=== PATIENT | male | born 1935 | race Caucasian/White ===

== ENCOUNTER 2019-06-22 15:58 | Emergency (ER) | payer MEDICARE ==
[2019-06-22 16:44] LABS: ABSOLUTE NEUTROPHIL COUNT 25.42; HEMATOCRIT 38.4 % (42.0-52.0); HEMOGLOBIN 12.3 gm/dl (14.0-18.0); MEAN CELL VOLUME 74.4 fl (81-97); MEAN CORPUSCULAR HEMOGLOBIN 23.8 pg (27-33); MEAN PLATELET VOLUME 9.9 fl (7.4-10.4); PLATELET COUNT 252 K/uL (130-400); RED BLOOD COUNT 5.16 M/uL (4.40-5.70); URINE APPEARANCE CLEAR; URINE BILIRUBIN NEGATIVE (NEGATIVE); URINE BLOOD NEGATIVE (NEGATIVE); URINE COLOR YELLOW; URINE GLUCOSE (UA) NEGATIVE (NEGATIVE); URINE KETONE NEGATIVE (NEGATIVE); URINE LEUKOCYTE ESTERASE NEGATIVE (NEGATIVE); URINE NITRITE NEGATIVE (NEGATIVE); URINE PROTEIN NEGATIVE (NEGATIVE); URINE UROBILINOGEN 0.2 E.U./dL (0.20 - 1.00)
[2019-06-22 16:53] LABS: WHITE BLOOD COUNT W/O DIFF 27.2 K/uL (4.2-12.2)
[2019-06-22 16:57] LABS: CREATININE 1.4 mg/dL (0.7-1.2)
--- NOTE | 2019-06-22 16:57 | Emergency Department Record ---
History of Present Illness - General Chief Complaint: Fever Stated Complaint: WEAKNESS,FEVER Time Seen by Provider: 06/22/19 16:08 Source: Patient, RN notes reviewed Mode of Arrival: Ambulatory - History of Present Illness Initial Comments: patient here because of weakness and fever and he had a bronchoscope done yesterday by Dr. Goncalves at [facility]. patient denies sore throat , no vomiting or diarrhea and no dysuria. Patient had a microbacterium type infection and reason for bronchoscopy, He also has a chronic cough. PMH pacemaker and atrial fib and history of PE and on guicho HORAN Complaint: Fever, Weakness Onset/Timin -: Days(s) Maximum Temperature: 101.7 F Temperature Source: Oral Context: Other Treatments Prior to Arrival: None - Related Data Home Medications Medication Instructions Recorded Confirmed Last Taken Albuterol Sulfate [Proair Hfa] 1 - 2 puff IH .EVERY 4-6 HOURS PRN 06/22/19 06/22/19 Unknown Apixaban [Eliquis] 5 mg PO BID 06/22/19 06/22/19 Unknown Carvedilol [Coreg] 3.125 mg PO BID 06/22/19 06/22/19 Unknown Dorzolamide HCl/Timolol Maleat 10 ml OP BID 06/22/19 06/22/19 Unknown [Cosopt Eye Drops] Furosemide 40 mg PO DAILY 06/22/19 06/22/19 Unknown Hydrocodone/Acetaminophen 1 tab PO Q6H PRN 06/22/19 06/22/19 Unknown [Hydrocodone/Acetaminophen 7.5mg/325mg] Hypochlorous Acid/Sodium Chlor 40 mg IH DAILY 06/22/19 06/22/19 Unknown [Avenova Lid-Lash Ramona] Pantoprazole Sodium 40 mg PO BID 06/22/19 06/22/19 Unknown Tafluprost/Pf [Zioptan 0.0015% Eye 1 each OP QHS 06/22/19 06/22/19 Unknown Drops] Valsartan 80 mg PO DAILY 06/22/19 06/22/19 Unknown Allergies Allergy/AdvReac Type Severity Reaction Status Date / Time cephalexin monohydrate AdvReac Mild sensitive Verified 01/26/16 15:05 [From [employer]] as a child latex AdvReac Mild RASH Verified 01/26/16 15:05 Travel Screening - Travel/Exposure Within Last 30 Days Have you traveled within the last 30 days?: No Review of Systems Reviewed: No additional complaints except as noted below Constitutional: Reports: As per HPI. Denies: Chills, Fever, Malaise, Night sweats, Weakness, Weight change Eyes: Reports: As per HPI. Denies: Eye discharge, Eye pain, Photophobia, Vision change ENT: Reports: As per HPI. Denies: Congestion, Dental pain, Ear pain, Epistaxis, Hearing loss, Throat pain Respiratory: Reports: As per HPI, Cough. Denies: Dyspnea, Hemoptysis, Stridor, Wheezes Cardiovascular: Reports: As per HPI. Denies: Arrhythmia, Chest pain, Dyspnea on exertion, Edema, Murmurs, Orthopnea, Palpitations, Paroxysmal nocturnal dyspnea, Rheumatic Fever, Syncope Endocrine: Reports: As per HPI. Denies: Fatigue, Heat or cold intolerance, Polydipsia, Polyuria Gastrointestinal: Reports: As per HPI. Denies: Abdominal pain, Constipation, Diarrhea, Hematemesis, Hematochezia, Melena, Nausea, Vomiting Genitourinary: Reports: As per HPI. Denies: Dysuria, Frequency, Hematuria, Inco ntinence, Retention, Testicular pain, Testicular mass, Urgency Musculoskeletal: Reports: As per HPI. Denies: Arthralgia, Back pain, Gout, Joint swelling, Myalgia, Neck pain Skin: Reports: As per HPI. Denies: Bruising, Change in color, Change in martine r/nails, Lesions, Pruritus, Rash Neurological: Reports: As per HPI. Denies: Abnormal gait, Confusion, Headache, Numbness, Paresthesias, Seizure, Tingling, Tremors, Vertigo, Weakness Psychiatric: Reports: As per HPI. Denies: Anxiety, Auditory hallucinations, Depression, Homicidal thoughts, Suicidal thoughts, Visual hallucinations Hematological/Lymphatic: Reports: As per HPI. Denies: Anemia, Blood Clots, Easy bleeding, Easy bruising, Swollen glands Past Medical History - SOCIAL HISTORY Smoking Status: Former smoker - RESPIRATORY Hx Respiratory Disorders: Yes Hx Sleep Apnea: Yes - CARDIOVASCULAR Hx Cardio Disorders: Yes Hx Abnormal EKG: Yes (PVC's) Hx Cardiac Cath: Yes (neg) Hx Edema: Yes (left) Hx Hypertension: Yes Comment:: AAA, high cholesterol - NEURO Hx Neuro Disorders: Yes Hx of Migraines: Yes (hx) Hx Neuropathy: Yes (LLE r/t laminectomy) Hx Weakness: Yes (LLE r/t laminectomy) - GI Hx GI Disorders: Yes Hx Reflux: Yes Hx Irritable Bowel: Yes (hx) Hx Rectal Bleeding: Yes Hx of Polyps: Yes Comment:: internal hemorrhoids per Dr. Oliver 10/2015 - Hx Genitourinary Disorders: No Hx Bladder Problem: (more frequency) - ENDOCRINE Hx Endocrine Disorders: No - MUSCULOSKELETAL Hx Musculoskeletal Disorders: Yes Hx Arthritis: Yes Comment:: PMR- hips and shoulders - PSYCH Hx Psych Problems: No - HEMATOLOGY/ONCOLOGY Hx Hematology/Oncology Disorders: No Family Medical History Any Significant Family History?: Yes Family Hx Comment (NOT TO BE USED IN PLACE OF ITEMS BELOW): manternal uncle- >colon cancer Hx Diabetes: Father, Children Hx Heart Disease: Father *Heart Comment: [place] Hx Liver Disease: Mother *Liver Comment: autoimmune disorder Hx Resp Disorders: Children *Resp Comment: CF (son at age 2) Physical Exam - General General Appearance: Alert, Oriented x3, Cooperative, No acute distress - Head Head exam: Normal inspection - Eye Eye exam: Normal appearance, PERRL Pupils: Normal accommodation - ENT ENT exam: Normal exam, Mucous membranes moist, Normal external ear exam, Normal orophraynx, TM's normal bilaterally Ear exam: Normal external inspection. negative: External canal tenderness Nasal Exam: Normal inspection. negative: Discharge, Sinus tenderness Mouth exam: Normal external inspection, Tongue normal Teeth exam: Normal inspection. negative: Dental caries Throat exam: Normal inspection. negative: Tonsillar erythema, Tonsillar exudate - Neck Neck exam: Normal inspection, Full ROM. negative: Tenderness - Respiratory Respiratory exam: Normal lung sounds bilaterally. negative: Respiratory distress - Cardiovascular Cardiovascular Exam: Regular rate, Normal rhythm, Normal heart sounds - GI/Abdominal GI/Abdominal exam: Soft, Normal bowel sounds. negative: Tenderness - Rectal Rectal exam: Deferred - exam: Deferred - Extremities Extremities exam: Normal inspection, Full ROM, Normal capillary refill. negative: Tenderness - Back Back exam: Reports: Normal inspection, Full ROM. Denies: Muscle spasm, Rash noted, Tenderness - Neurological Neurological exam: Alert, Normal gait, Oriented X3, Reflexes normal - Psychiatric Psychiatric exam: Normal affect, Normal mood - Skin Skin exam: Dry, Intact, Normal color, Warm Course Vital Signs 06/22/19 16:06 Temperature 99.0 F Pulse Rate 55 L Respiratory 16 Rate Blood Pressure 123/63 Pulse Ox 93 L - Reevaluation(s) Reevaluation #1: discussed case Dr Mcguire insurance risk analyst covering for DR Goncalves and he recommended levaquin. 06/22/19 17:44 Reevaluation #2: discussed case with patient and and they would like to try outpatient treatment and they will talk to Dr Goncalves next week. 06/22/19 19:17 Reevaluation #3: Dr Goncalves called in levaquin 500 mg for 10 days this am and he took the first pill today 06/22/19 19:24 Medical Decision Making - Data Complexity MDM Data: Labs Ordered and/or Reviewed (wbc 27,000), X-Ray Ordered and/or Reviewed (infiltrate right lower lobe and left lower lobe reticular and difficult to exclude and infiltrate) - Lab Data Result diagrams: 06/22/19 16:17 06/22/19 16:17 Lab Results 06/22/19 Range/Units 16:17 Urine Color Yellow Urine Appearance Clear Urine pH 6.0 (5.0-8.0) Ur Specific Anthony 1.010 (1.002-1.030) Urine Protein Negative (NEGATIVE) Urine Glucose (UA) Negative (NEGATIVE) Urine Ketones Negative (NEGATIVE) Urine Blood Negative (NEGATIVE) Urine Nitrite Negative (NEGATIVE) Urine Bilirubin Negative (NEGATIVE) Urine Urobilinogen 0.2 (0.20 - 1.00) E.U./dL Ur Leukocyte Esterase Negative (NEGATIVE) Disposition Clinical Impression: Leukocytosis Qualifiers: Leukocytosis type: unspecified Qualified Code(s): D72.829 - Elevated white blood cell count, unspecified Pneumonia Qualifiers: Pneumonia type: due to unspecified organism Laterality: bilateral Lung location: lower lobe of lung Qualified Code(s): J18.1 - Lobar pneumonia, unspec ified organism Disposition: Home, Self-Care Condition: (1) Good Instructions: Bacterial Pneumonia (ED) Additional Instructions: follow up with Dr Goncalves next week or Dr Drew next week continue the levaquin 500 mg daily for the 10 day course return if worse Forms: Patient Portal Access Quality - Quality Measures Quality Measures: N/A - Blood Pressure Screening Does Patient Have Any of the Following: No, Active Dx of HTN Blood Pressure Classification: Pre-Hypertensive BP Reading Systolic Measurement: 123 Diastolic Measurement: 63 Screening for High Blood Pressure: Patient Exclusion, Hx of HTN [G9014]
[2019-06-22] MEDS ORDERED: 0.9 % SODIUM CHLORIDE 500ML 500 ML IV SCH (18:00)
--- NOTE | 2019-06-23 13:30 | RADIOLOGY REPORT ---
EXAM: CHEST 2 VIEWS HISTORY: STATUS POST BRONCHOSCOPY YESTERDAY. FEVER AND PRODUCTIVE COUGH TODAY. HISTORY OF MICROBACTERIUM INFECTION. TECHNIQUE: Upright PA and lateral views of the chest. COMPARISON: None. FINDINGS: A dual-lead transvenous cardiac stimulator is in place via the left subclavian approach with lead tips in the right atrium and right ventricle, respectively. The heart is nonenlarged and the pulmonary vasculature is nondilated. The thoracic aorta is mildly tortuous and atherosclerotic. The lungs appear mildly hyperinflated. Mixed, primarily reticular opacities are noted within the lower lungs. The posterior costophrenic angles are somewhat ill-defined with scarring or tiny effusions possible. No acute osseous abnormality. IMPRESSION: 1. DUAL-LEAD TRANSVENOUS CARDIAC STIMULATOR IN PLACE VIA THE LEFT SUBCLAVIAN APPROACH. 2. HYPERINFLATION OF THE LUNGS CONSISTENT WITH COPD. 3. MIXED, PRIMARILY RETICULAR OPACITIES WITHIN THE LOWER LUNGS. WHILE THIS MAY ALL RELATE TO CHRONIC INTERSTITIAL CHANGE/FIBROSIS, INFILTRATE OR EDEMA SUPERIMPOSED ON CHRONIC INTERSTITIAL DISEASE WOULD BE DIFFICULT TO EXCLUDE. 4. ILL-DEFINED COSTOPHRENIC ANGLES. THIS MAY RELATE TO HYPERINFLATION, SCARRING, OR TINY EFFUSIONS. JOB NUMBER: [id number] [facility]
== END 2019-06-22 19:38 | disposition home or self-care (01) ==
LOC: ER 15:58
DX: J18.1 Lobar pneumonia, unspecified organism (principal); D72.829 Elevated white blood cell count, unspecified; Z87.891 Personal history of nicotine dependence; I48.91 Unspecified atrial fibrillation; R53.1 Weakness; Z95.0 Presence of cardiac pacemaker; E78.00 Pure hypercholesterolemia, unspecified
CPT/HCPCS: 71046; 80048; 81003; 85027; 99284; 99285; J7040

== ENCOUNTER 2019-06-23 15:50 | Observation (INO) | payer MEDICARE ==
[2019-06-23 16:41] LABS: ABSOLUTE NEUTROPHIL COUNT 13.49; HEMATOCRIT 35.6 % (42.0-52.0); HEMOGLOBIN 11.3 gm/dl (14.0-18.0); MEAN CELL VOLUME 74.3 fl (81-97); MEAN CORPUSCULAR HGB CONC 31.7 g/dl (32-36); MEAN PLATELET VOLUME 10.5 fl (7.4-10.4); PLATELET COUNT 227 K/uL (130-400); RED BLOOD COUNT 4.79 M/uL (4.40-5.70); RED CELL DISTRIBUTION WIDTH 17.9 % (11.5-14.5)
[2019-06-23 16:45] LABS: MEAN CORPUSCULAR HEMOGLOBIN 23.5 pg (27-33)
[2019-06-23 16:51] LABS: CREATININE 1.3 mg/dL (0.7-1.2)
--- NOTE | 2019-06-23 18:03 | Emergency Department Record ---
History of Present Illness - General Chief Complaint: Difficulty Breathing Stated Complaint: PNEUMONIA Time Seen by Provider: 06/23/19 16:04 Source: Patient, RN notes reviewed Mode of Arrival: Ambulatory - History of Present Illness Initial Comments: patient returns and short of breath and cough and he feels weak and slightly confused per . Currently he is alert and oriented times three and not confused. chest xray slightly worse WBC better 15,000 Onset/Timin -: Days(s) Severity: Moderate Severity scale (1-10): 7 Quality: Aching Consistency: Constant Improves With: Nothing Worsens With: Nothing - Related Data Allergies Allergy/AdvReac Type Severity Reaction Status Date / Time cephalexin monohydrate AdvReac Mild sensitive Verified 06/23/19 15:54 [From [employer]] as a child latex AdvReac Mild RASH Verified 06/23/19 15:54 Travel Screening - Travel/Exposure Within Last 30 Days Have you traveled within the last 30 days?: No - Travel/Exposure Within Last Year Have you traveled outside the [place] in the last year?: No - Additonal Travel Details Have you been exposed to anyone with a communicable illness?: No - Travel Symptoms Symptom Screening: None Review of Systems Reviewed: No additional complaints except as noted below Constitutional: Reports: As per HPI. Denies: Chills, Fever, Malaise, Night sweats, Weakness, Weight change Eyes: Reports: As per HPI. Denies: Eye discharge, Eye pain, Photophobia, Vision change ENT: Reports: As per HPI. Denies: Congestion, Dental pain, Ear pain, Epistaxis, Hearing loss, Throat pain Respiratory: Reports: As per HPI. Denies: Cough, Dyspnea, Hemoptysis, Stridor, Wheezes Cardiovascular: Reports: As per HPI. Denies: Arrhythmia, Chest pain, Dyspnea on exertion, Edema, Murmurs, Orthopnea, Palpitations, Paroxysmal nocturnal dyspnea, Rheumatic Fever, Syncope Endocrine: Reports: As per HPI. Denies: Fatigue, Heat or cold intolerance, Polydipsia, Polyuria Gastrointestinal: Reports: As per HPI. Denies: Abdominal pain, Constipation, Diarrhea, Hematemesis, Hematochezia, Melena, Nausea, Vomiting Genitourinary: Reports: As per HPI. Denies: Dysuria, Frequency, Hematuria, Incontinence, Retention, Testicular pain, Testicular mass, Urgency Musculoskeletal: Reports: As per HPI. Denies: Arthralgia, Back pain, Gout, Milly nt swelling, Myalgia, Neck pain Skin: Reports: As per HPI. Denies: Bruising, Change in color, Change in hair/nails, Lesions, Pruritus, Rash Neurological: Reports: As per HPI. Denies: Abnormal gait, Confusion, Headache, Numbness, Paresthesias, Seizure, Tingling, Tremors, Vertigo, Weakness Psychiatric: Reports: As per HPI. Denies: Anxiety, Auditory hallucinations, Depression, Homicidal thoughts, Suicidal thoughts, Visual hallucinations Hematological/Lymphatic: Reports: As per HPI. Denies: Anemia, Blood Clots, Easy bleeding, Easy bruising, Swollen glands Past Medical History - SOCIAL HISTORY Smoking Status: Former smoker Alcohol Use: None Drug Use: None - RESPIRATORY Hx Respiratory Disorders: Yes Hx Sleep Apnea: Yes - CARDIOVASCULAR Hx Cardio Disorders: Yes Hx Abnormal EKG: Yes (PVC's) Hx Cardiac Cath: Yes (neg) Hx Edema: Yes (left) Hx Hypertension: Yes Comment:: AAA, high cholesterol - NEURO Hx Neuro Disorders: Yes Hx of Migraines: Yes (hx) Hx Neuropathy: Yes (LLE r/t laminectomy) Hx Weakness: Yes (LLE r/t laminectomy) - GI Hx GI Disorders: Yes Hx Reflux: Yes Hx Irritable Bowel: Yes (hx) Hx Rectal Bleeding: Yes Hx of Polyps: Yes Comment:: internal hemorrhoids per Dr. Oliver 10/2015 - Hx Genitourinary Disorders: No Hx Bladder Problem: (more frequency) - ENDOCRINE Hx Endocrine Disorders: No - MUSCULOSKELETAL Hx Musculoskeletal Disorders: Yes Hx Arthritis: Yes Comment:: PMR- hips and shoulders - PSYCH Hx Psych Problems: No - HEMATOLOGY/ONCOLOGY Hx Hematology/Oncology Disorders: No Family Medical History Any Significant Family History?: Yes Family Hx Comment (NOT TO BE USED IN PLACE OF ITEMS BELOW): manternal uncle- >colon cancer Hx Diabetes: Father, Children Hx Heart Disease: Father *Heart Comment: [place] Hx Liver Disease: Mother *Liver Comment: autoimmune disorder Hx Resp Disorders: Children *Resp Comment: CF (son at age 2) Physical Exam - General General Appearance: Alert, Oriented x3, Cooperative, No acute distress - Head Head exam: Normal inspection - Eye Eye exam: Normal appearance, PERRL Pupils: Normal accommodation - ENT ENT exam: Normal exam, Mucous membranes moist, Normal external ear exam, Normal orophraynx, TM's normal bilaterally Ear exam: Normal external inspection. negative: External canal tenderness Nasal Exam: Normal inspection. negative: Discharge, Sinus tenderness Mouth exam: Normal external inspection, Tongue normal Teeth exam: Normal inspection. negative: Dental caries Throat exam: Normal inspection. negative: Tonsillar erythema, Tonsillar exudate - Neck Neck exam: Normal inspection, Full ROM. negative: Tenderness - Respiratory Respiratory exam: Normal lung sounds bilaterally. negative: Respiratory distress - Cardiovascular Cardiovascular Exam: Regular rate, Normal rhythm, Normal heart sounds - GI/Abdominal GI/Abdominal exam: Soft, Normal bowel sounds. negative: Tenderness - Rectal Rectal exam: Deferred - exam: Deferred - Extremities Extremities exam: Normal inspection, Full ROM, Normal capillary refill. negative: Tenderness - Back Back exam: Reports: Normal inspection, Full ROM. Denies: Muscle spasm, Rash noted, Tenderness - Neurological Neurological exam: Alert, Normal gait, Oriented X3, Reflexes normal - Psychiatric Psychiatric exam: Normal affect, Normal mood - Skin Skin exam: Dry, Intact, Normal color, Warm Course Vital Signs 06/23/19 15:53 Temperature 98.1 F Pulse Rate 65 Respiratory 18 Rate Blood Pressure 125/70 Pulse Ox 93 L Medical Decision Making - Data Complexity MDM Data: Labs Ordered and/or Reviewed (15,000,creat 1.3), X-Ray Ordered and/or Reviewed (chest xray bilateral infiltrates) - Lab Data Result diagrams: 06/23/19 16:10 06/23/19 16:10 Lab Results 06/23/19 06/23/19 Range/Units 16:10 16:10 WBC 15.0 H (4.2-12.2) K/uL RBC 4.79 (4.40-5.70) M/uL Hgb 11.3 L (14.0-18.0) gm/dl Hct 35.6 L (42.0-52.0) % MCV 74.3 L (81-97) fl MCH 23.5 L (27-33) pg MCHC 31.7 L (32-36) g/dl RDW 17.9 H (11.5-14.5) % Plt Count 227 (130-400) K/uL MPV 10.5 H (7.4-10.4) fl Neutrophils % 88.0 H (47-80) % Eosinophils % Not Reportable Basophils % Not Reportable Absolute Neutrophils 13.49 Lymphocytes 7.0 L (16-45) % Monocytes 5.0 (0-9) % Sodium 128 L (136-145) mmol/L Potassium 3.7 (3.4-4.5) mmol/L Chloride 93 L (98-107) mmol/L Carbon Dioxide 20.0 L (22-29) mmol/L Anion Gap 15.0 (7-16) BUN 31 H (8-23) mg/dL Creatinine 1.3 H (0.7-1.2) mg/dL Estimated GFR 56 mL/min Random Glucose 93 (74-109) mg/dL Calcium 8.5 L (8.8-10.2) mg/dL Disposition Clinical Impression: Pneumonia Qualifiers: Pneumonia type: due to unspecified organism Laterality: bilateral Lung location: lower lobe of lung Qualified Code(s): J18.1 - Lobar pneumonia, unspecified organism Decision to Admit: Admit from ER Condition: (2) Stable Time of Disposition: 18:02 Quality - Quality Measures Quality Measures: N/A - Blood Pressure Screening Does Patient Have Any of the Following: No, Active Dx of HTN Blood Pressure Classification: Pre-Hypertensive BP Reading Systolic Measurement: 125 Diastolic Measurement: 70 Screening for High Blood Pressure: Patient Exclusion, Hx of HTN [G9744]
[2019-06-23] MEDS ORDERED: ALBUTEROL HFA 8 GM INHALER INH PRN (18:14)
[2019-06-23] MEDS ORDERED: 0.9 % SODIUM CHLORIDE 1000ML 1,000 ML IV PRN (19:33)
[2019-06-23] MEDS ORDERED: ACETAMINOPHEN 325 MG TAB PO PRN (19:33)
[2019-06-23] MEDS: LEVOFLOXACIN 500MG IVPB 500 MG/100 ML BAG IVPB SCH ×2 (19:39→21:35)
[2019-06-23] MEDS ORDERED: HYDROCODONE/APAP 7.5/325MG TABLET PO PRN (20:41)
[2019-06-23] MEDS: PANTOPRAZOLE SODIUM 40 MG TABLET PO SCH ×2 (20:50→21:25)
[2019-06-23] MEDS: CARVEDILOL 3.125 MG TABLET PO SCH ×2 (20:50→21:25)
[2019-06-23] MEDS: APIXABAN 5MG TABLET PO SCH ×2 (20:50→21:25)
[2019-06-23] MEDS: DORZOLAMIDE MC SCH ×2 (20:51→21:25)
[2019-06-23] MEDS: TIMOLOL MC SCH ×2 (20:51→21:25)
[2019-06-23] MEDS ORDERED: [UNRECOGNIZED DRUG - OTHER] MC SCH (21:45)
[2019-06-23] MEDS ORDERED: LATANOPROST 0.005% OPTH SOLUTION 2.5ML BOTTLE OPTH SCH (22:00)
[2019-06-24 06:22] LABS: HEMATOCRIT 34.1 % (42.0-52.0); HEMOGLOBIN 11.1 gm/dl (14.0-18.0); MEAN CELL VOLUME 74.3 fl (81-97); MEAN CORPUSCULAR HEMOGLOBIN 24.1 pg (27-33); MEAN CORPUSCULAR HGB CONC 32.6 g/dl (32-36); MEAN PLATELET VOLUME 9.6 fl (7.4-10.4); PLATELET COUNT 196 K/uL (130-400); RED BLOOD COUNT 4.59 M/uL (4.40-5.70); WHITE BLOOD COUNT W/O DIFF 9.9 K/uL (4.2-12.2)
[2019-06-24 06:41] LABS: CREATININE 1.3 mg/dL (0.7-1.2)
--- NOTE | 2019-06-24 07:15 | RADIOLOGY REPORT ---
EXAM: CHEST, TWO VIEWS HISTORY: WORSENING COUGH, FEVER. TECHNIQUE: PA and lateral views of the chest were obtained. Comparison: Two view chest 06/22/19. Report of the prior chest x-ray not yet available within PACS. FINDINGS: Stable heart size. Pacemaker remains in place. The lungs again appear hyperinflated suggesting underlying COPD. Persistent predominantly basilar infiltrate which overall has changed relatively little from yesterday. There may be slight increase in the right base. There also appears to be slightly greater blunting of both costophrenic angles suggesting slight increase in bibasilar effusion. IMPRESSION: 1. THERE HAS PROBABLY BEEN SLIGHT INCREASE IN BIBASILAR EFFUSION SINCE YESTERDAY AND POSSIBLY ALSO SLIGHT INCREASE IN RIGHT BASILAR INFILTRATE. 2. OTHERWISE, CHEST APPEARS ESSENTIALLY UNCHANGED. JOB NUMBER: [id number] [facility]
[2019-06-24] MEDS ORDERED: PNEUM 13-VAL/PF 0.5 ML IM ONE (09:00)
[2019-06-24] MEDS: CARVEDILOL 3.125 MG TABLET PO SCH (09:26)
[2019-06-24] MEDS: PANTOPRAZOLE SODIUM 40 MG TABLET PO SCH (09:26)
[2019-06-24] MEDS: APIXABAN 5MG TABLET PO SCH (09:26)
[2019-06-24] MEDS: DORZOLAMIDE MC SCH (09:27)
[2019-06-24] MEDS: TIMOLOL MC SCH (09:27)
[2019-06-24] MEDS ORDERED: VALSARTAN 80 MG TAB PO SCH (10:00)
[2019-06-24] MEDS ORDERED: HYPOCHLOROUS ACID IH SCH (10:00)
[2019-06-24] MEDS ORDERED: SODIUM CHLOR IH SCH (10:00)
--- NOTE | 2019-06-24 12:44 | Discharge Note ---
VTE H&P Assessment - Risk for VTE Risk for VTE: Yes Risk Level: Moderate Risk Assessment Date: 06/24/19 Risk Assessment Time: 12:41 VTE Orders Placed or Will Be Placed: Yes Discharge Medications - Discharge Medications Home Medications: Ambulatory Orders Apixaban [Eliquis] 5 mg PO BID 06/22/19 [Last Taken 1 Day Ago ~06/22/19] Carvedilol [Coreg] 3.125 mg PO BID 06/22/19 [Last Taken 1 Day Ago ~06/22/19] Dorzolamide HCl/Timolol Maleat [Cosopt Eye Drops] 1 drop EACH EYE BID 06/22/19 [Last Taken 1 Day Ago ~06/22/19] Furosemide 20 mg PO DAILY 06/22/19 [Last Taken 1 Day Ago ~06/22/19] Hydrocodone/Acetaminophen [Hydrocodone/Acetaminophen 7.5mg/325mg] 1 tab PO Q6H PRN 06/22/19 [Last Taken 1 Day Ago ~06/22/19] Hypochlorous Acid/Sodium Chlor [Avenova Lid-Lash Girard] 40 mg IH DAILY PRN 06/22/19 [Last Taken 1 Day Ago ~06/22/19] Pantoprazole Sodium 40 mg PO BID 06/22/19 [Last Taken 1 Day Ago ~06/22/19] Tafluprost/Pf [Zioptan 0.0015% Eye Drops] 1 each EACH EYE QHS 06/22/19 [Last Taken 1 Day Ago ~06/22/19] Valsartan 80 mg PO DAILY 06/22/19 [Last Taken 1 Day Ago ~06/22/19] Albuterol Sulfate [Proair Respiclick] 1 inh IH DAILY 06/24/19 [Last Taken Unkno wn] Discharge Note - Date Date of Discharge Note: 06/24/19 Disposition: Home, Self-Care Condition: (2) Stable Instructions: Pneumonia (DC) Additional Instructions: follow up with Dr. Goncalves on tues stop elliquis and aspirin for 24 hours continue levaquin Referrals: LEYLA DUKES [Primary Care Provider] - Forms: Patient Portal Access Activity at Discharge: Increase Activity as Tolerated Diet at Discharge: Low Salt Diet
[2019-06-24] MEDS ORDERED: [UNRECOGNIZED DRUG - OTHER] MC SCH (22:00)
[2019-06-24] MEDS ORDERED: PANTOPRAZOLE SODIUM 40 MG TABLET PO SCH (22:00)
--- NOTE | 2019-06-25 07:51 | History and Physical Report ---
DATE: 06/24/2019 at 8 a.m. CHIEF COMPLAINT: Short of breath, cough, feeling weak and slightly confused, per . HISTORY OF PRESENT ILLNESS: This 83-year-old male was seen twice in the emergency department in the last 2 days and yesterday he was admitted for pneumonia, failed outpatient therapy. The patient had a bronchoscopy done on Monday by Dr. Goncalves at [facility]. He had a fever the first day he came in and weak. He was given some IV fluids. Dr. Goncalves had called in a prescription of Levaquin 500 mg once a day. He took 1 pill of that. His white count was elevated to 27,000. His chest x-ray showing a possible infiltrate in the right lower lobe. At that point, he wanted to try going home with outpatient therapy and continuing the Levaquin. He went home and was doing reasonably well but he was called by the nurse and ER for recheck on a routine call back. The said he was confused, worse, and it was recommended he come back to the ER for evaluation. Upon my evaluation in the ER, he was not confused and disoriented. He was acting appropriately. He said he was a little bit weaker and slightly more short of breath. The and him were concerned that he wanted to be put in the hospital. He was admitted for pneumonia and further care. The second WBC 24 hours after the first had dropped to 15,000. The chest x-ray the second day was basically the same, is what the radiologist said, but slightly maybe more infiltrated in the right lower lobe. His temperature was in the normal range at 99 to 98.6. His temperature on the first day in the ER was 101.7. MEDICATIONS: On admission: 1. Losartan 80 mg daily. 2. Zyopta eyedrops 1 drop at h.s. 3. Protonix 40 mg b.i.d. 4. Hydrocodone 1 b.i.d. p.r.n. back pain. 5. Timolol eyedrops b.i.d. 6. Coreg 3.125 b.i.d. 7. Eliquis 5 mg b.i.d. 8. ProAir 2 puffs q.4 h. p.r.n. PAST MEDICAL HISTORY: He has had a long-standing mycobacterium infection. The knows the exact one starts with a Y. This bronchoscopy was a followup bronchoscopy to see how his lungs were doing. He also has atrial fibrillation on Eliquis. He has a pacemaker. Coronary artery disease. Sleep apnea. Hypertension. High cholesterol. He also has an abdominal aortic aneurysm. His heart cath was negative, so he may not have coronary artery disease. He does have PVCs. He has migraines. He had a laminectomy in the lower back with some weakness from that in his left leg and some edema chronically in his left leg. GERD. Irritable bowel syndrome. Internal hemorrhoids. arthritis of the hips and shoulders. PAST SURGICAL HISTORY: Cervical fusion in 1991, laminectomy in 1988 and 1989, left eye laser surgery in 2014, bilateral cataracts in 2006, AAA repair in 2007, left foot foreign body removal, wisdom teeth extraction, colonoscopy, and bronchoscopy. ALLERGIES: CEPHALEXIN, LATEX. FAMILY/PSYCHOSOCIAL HISTORY: Diabetes in father and children. Heart disease with the father. Mother had liver disease, autoimmune disorder. Cystic fibrosis in one son, at age 2. Former smoker, quit in 1970. No alcohol or drug use. REVIEW OF SYSTEMS: HEENT: No upper respiratory infection symptoms, cough, cold, or congestion. Cardiovascular: No chest pain, palpitations, or arrhythmia. Respiratory: Slightly short of breath. See Chief Complaint. No hemoptysis. Recent bronchoscopy 3 days earlier. Gastrointestinal: No nausea, vomiting, diarrhea, black stools, or bloody stools. Genitourinary: No dysuria, hematuria, frequency, or burning on urination. Musculoskeletal: He has some chronic low back pain but otherwise moving all 4 extremities. Neurological: No CVA, paralysis, or paresthesias. Endocrine: No diabetes or hypothyroidism. Integument: No rash, ulcers, change in moles, or yellow skin. PHYSICAL EXAMINATION: VITALS: Height 6 feet, weight 175 on a standing scale. Temperature has been afebrile since in the hospital 98.8, blood pressure 139/67, pulse 75, respiratory rate 18, pulse ox 94% on room air. HEENT: Pupils are equal, round, and reactive to light and accommodation. Extraocular muscles are intact. Throat is clear. Nose is clear. Tympanic membranes are house. Slightly dehydrated lips and mouth. NECK: Supple. No jugular venous distention. No hepatojugular reflux. No carotid bruits. Thyroid is smooth. CARDIOVASCULAR: Regular rate and rhythm. He is in sinus rhythm with PVCs. RESPIRATORY: Breath sounds equal bilaterally. Maybe some scant rales in right lower lobe. ABDOMEN: Soft, nontender. No hepatosplenomegaly, no masses, no tenderness. Bowel sounds are active. No bruits. EXTREMITIES: There is some swelling chronically in the left lower leg and he wears a support sock. BREASTS: Normal male breasts. RECTAL: Exam deferred. GENITALIA: Deferred. NEUROLOGIC: Cranial nerves II-XII intact. No gross defects. Sensation normal, strength normal. Deep tendon reflexes equal bilaterally with Babinski negative. MENTAL STATUS: Alert and oriented x3. IMPRESSION: 1. Right lower lobe pneumonia. 2. Post bronchoscopy. 3. Chronic obstructive pulmonary disease. 4. Long-standing mycobacterium infection. 5. History of pacemaker insertion. 6. Intermittent history of atrial fibrillation and on Eliquis. 7. He also appears slightly dehydrated. We are holding the Lasix at this time but I am very cautious. I do not want to over-hydrate him because of his history of congestive heart failure. PLAN: IV Levaquin. Cautious hydration. Further evaluation. We will discuss the case with Dr. Goncalves when the office is open. ANA LUISA
--- NOTE | 2019-06-25 07:52 | Discharge Summary ---
DISCHARGE DIAGNOSES: 1. Pneumonia, right lower lobe. 2. Post bronchoscopy day 3. 3. Chronic obstructive pulmonary disease. 4. Mycobacterium infection, being followed by Dr. Goncalves, investment banking analyst at [facility]. 5. History of chronic back pain using oxycodone 2 tablets a day 7.5 mg. 6. History of congestive heart failure. 7. History of atrial fibrillation. 8. 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 9. Gastroesophageal reflux disease. ATTENDING PHYSICIAN: Alessandro Mills DO Observation patient. REASON FOR HOSPITALIZATION: The patient was seen in the emergency department twice and was anxious about going home. He was improving; however, his stated he had some episodes of being slightly confused. On my evaluation in the ER the second time, he was not confused or disoriented but he was placed for cautious hydration and further evaluation. He is currently taking Levaquin 500 mg daily. White count 48 hours ago was 27,000. It came down to 15,000 yesterday at 4:10 p.m. and 9000 today. He was placed for cautious hydration and further evaluation pending both bronchoscopy cultures and blood cultures which were done on 06/22/2019 at [facility]. Bronchoscopy was done on 06/21/2019. SIGNIFICANT FINDINGS: The chest x-ray showing a right lower lobe infiltrate, slightly more consolidated than the day before; however, radiologist felt it could be reticular in nature. He stated there is probably a slight increase in bibasilar effusion since yesterday with also some slight increase in right basilar infiltrate. Otherwise, chest appears essentially unchanged. WBC 2 days ago was 27,000, yesterday it was 15,000, today it is 9900. hemoglobin on discharge 11.2. Labs on discharge are sodium 132, potassium 3.5, chloride 99, BUN 27, creatinine 1.3, calcium 8.2. Blood culture showing no growth to date but not finalized yet per [facility]'s lab. The patient coughed up some slightly brown sputum, about a tablespoon with tinges of blood. Gardiner it was blood from the biopsies of the bronchoscopy and the bronchoscopy procedure done on 06/21/2019. THERAPY PROVIDED: He was given IV Levaquin. He was anxious to go home on the day of discharge because he is seeing his family doctor tomorrow. He is feeling much better. He is walking around the room without difficulties. Ate a small amount of breakfast and lunch and is feeling better. CONDITION ON DISCHARGE: Much improved. DISCHARGE INSTRUCTIONS: Follow up with Dr. Merida tomorrow as scheduled. Follow up with Dr. Goncalves on 07/02/2019. Decrease the Lasix to 20 mg a day. Continue the ProAir 2 puffs q.4 h. p.r.n. Continue the eyedrops Zioptan drops 1 in each eye at h.s. Continue the timolol drops b.i.d. Continue the Lasix 20 mg a day. He was on 40. May need to go back up to 40 if he retains more fluid. Continue the valsartan 80 mg a day. Continue the Protonix 40 mg b.i.d. Hydrocodone 1 tablet b.i.d. or Tylenol instead. Carvedilol 3.125 b.i.d. Stop the Eliquis for 24 hours because of the hemoptysis and then restart it in 24 hours, which would be 5 mg b.i.d. MTDD
== END 2019-06-24 13:35 | disposition home or self-care (01) ==
LOC: ER 15:50 → MEDSURG 19:28 → INTOOBSV 19:28
PROVIDERS: ADMIT Emergency Medicine; ATTEND Emergency Medicine
DX: J18.1 Lobar pneumonia, unspecified organism (principal); I48.1 Persistent atrial fibrillation; Z16.30 Resistance to unspecified antimicrobial drugs; I10 Essential (primary) hypertension; E78.00 Pure hypercholesterolemia, unspecified; K21.9 Gastro-esophageal reflux disease without esophagitis; R60.9 Edema, unspecified; I49.3 Ventricular premature depolarization; G47.33 Obstructive sleep apnea (adult) (pediatric); M19.012 Primary osteoarthritis, left shoulder; M19.011 Primary osteoarthritis, right shoulder; M16.0 Bilateral primary osteoarthritis of hip; Z95.0 Presence of cardiac pacemaker; Z87.891 Personal history of nicotine dependence; Z98.61 Coronary angioplasty status
CPT/HCPCS: 80048 ×2; 85027 ×2; 71046; G0378 ×2; J3490 ×2; 99220; 99285; J1956